=== PATIENT | male | born 1955 | race Caucasian/White ===

== ENCOUNTER 2017-03-28 09:24 | Observation (INO) | payer OTHER ==
--- NOTE | 2017-03-28 10:14 | EDPHY ---
H & P Time Seen by Provider: 03/28/17 10:09 HPI/ROS: Chief complaint. Chest pain HPI. 7-year-old male presents with several day history of sharp posterior left shoulder pain, left anterior chest discomfort and left posterior back pain below his scapula yesterday. The pains are described as sharp and worse with breathing. Symptoms are episodic. They are not worse with exertion. He is not short of breath. He has had recent travel. He has had some night sweats. Possibly fever to 100 degrees. Again the left anterior chest discomfort and back pain or worse with deep breathing. Not worse with exertion. He denies abdominal pain or vomiting or diarrhea. He denies urinary symptoms. Patient is visiting from [place]. ROS Constitutional. Possible low-grade fever. Night sweats Eyes. no problems with vision ENT. no sore throat, no nasal drainage Cardiovascular. Left anterior chest pain Respiratory. no shortness of breath, no cough Abdominal. no abdominal pain, no nausea/vomiting, no diarrhea . no problems urinating MS. Posterior left shoulder pain and pain below the left scapula. Skin. no rash Lymph. no swollen glands Neuro. no headache, no dizziness, no difficulty walking or with speech Past Medical/Surgical History: Denies family history of early coronary artery disease. Hernia surgery with mesh implanted and then mesh removed. Denies heart, lung, kidney, diabetes, hypertension Social History: , nonsmoker, no alcohol Smoking Status: Never smoked Physical Exam: General Appearance: Alert well-developed male mild distress vital signs are stable Eyes: Pupils equal and round no pallor or injection. ENT, Mouth: Mucous membranes are moist. Respiratory: There are no retractions, lungs are clear to auscultation. Cardiovascular: Regular rate and rhythm. Gastrointestinal: Abdomen is soft and nontender, no masses, bowel sounds normal. Neurological: Awake and alert, sensory and motor exams grossly normal. Skin: Warm and dry, no rashes. Musculoskeletal: Neck is supple nontender. Extremities symmetrical, full range of motion. Psychiatric: Patient is oriented X 3, there is no agitation. Constitutional: Initial Vital Signs Temperature (C) 36.9 C 03/28/17 09:26 Heart Rate 81 03/28/17 09:26 Respiratory Rate 18 03/28/17 09:26 Blood Pressure 127/90 H 03/28/17 09:26 O2 Sat (%) 96 03/28/17 09:26 O2 Delivery Mode Room Air Allergies/Adverse Reactions: No Known Allergies Allergy (Unverified 03/28/17 09:26) Home Medications: Medication Instructions Recorded NK [No Known Home Meds] 03/28/17 Medical Decision Making - Diagnostics EKG Interpretation: IV normal saline Imaging Results: Imaging Impressions Chest/Thorax CTA 03/28/17 11:49 Impression: 1. Moderate volume pulmonary emboli with a left lower lobe pulmonary infarct. 2. 7.5 mm noncalcified left lower lobe pulmonary nodule. If there are any old outside chest imaging studies, we would be happy to review them to assess for interval change. If none are available, recommend follow-up noncontrast chest CT in 6-12 months and then 18-24 months. I'm assuming that the patient does not have a history of malignancy. Results discussed with Dr. Guy Spence at 12:30 PM. General information for patients regarding this examination can be found at [email or web address]. If you have questions or comments about this report, please contact me at [phone] (hospital) or [phone] (cell). Denies chest x-ray CT scan with IV contrast shows moderate volume pulmonary embolus on the left with left lower lobe pulmonary infarct. Reviewed by me and discussed Dr. Salgado. Also incidental finding of a left lower lobe pulmonary nodule Procedures: IV normal saline, monitor. 1 L of saline. Patient has an elevated D-dimer and risk factors of travel. CT angio chest is ordered Patient refuses Lovenox. Eliquis is ordered for the patient ED Course/Re-evaluation: Re-evaluation at 11:40 a.m.. Patient is stable. He and I discussed lab and imaging and EKG findings. We discussed treatment plan including recommendation for CT angiogram due to elevated D-dimer. He expresses understanding and agreement Re-evaluation patient is stable. He and I discussed imaging study results, treatment plan including recommendation for admission. He expresses understanding and agreement I consulted discussed the case with Dr. Dorsey, hospitalist, who will see the patient in the emergency department. The patient goes back and forth whether he wishes to be admitted or not. He does not think he wants take Lovenox and asks for 1 of the novel anticoagulants. He is given a dose of Eliquis. Differential Diagnosis: I considered musculoskeletal, acute coronary syndrome, pulmonary embolus - Data Points Laboratory Results: Laboratory Results 03/28/17 10:35 03/28/17 10:35 03/28/17 03/28/17 03/28/17 10:45 10:35 10:35 WBC RBC Hgb Hct MCV MCH MCHC RDW Plt Count MPV Neut % (Auto) Lymph % (Auto) Coffee % (Auto) Eos % (Auto) Baso % (Auto) Nucleat RBC Rel Count Absolute Neuts (auto) Absolute Lymphs (auto) Absolute Monos (auto) Absolute Eos (auto) Absolute Basos (auto) Absolute Nucleated RBC Immature Gran % Immature Gran # D-Dimer Sodium 140 mEq/L mEq/L (135-145) Potassium 4.2 mEq/L mEq/L (3.5-5.2) Chloride 99 mEq/L mEq/L (97-110) Carbon Dioxide 31 mEq/l mEq/l (22-31) Anion Gap 10 mEq/L mEq/L (8-16) BUN 12 mg/dL mg/dL (7-23) Creatinine 0.8 mg/dL mg/dL (0.7-1.3) Estimated GFR > 60 Glucose 103 mg/dL H mg/dL (70-100) Calcium 8.7 mg/dL mg/dL (8.5-10.4) Troponin I < 0.012 ng/mL ng/mL (0.000-0.034) NT-Pro-B Natriuret Pep 56 pg/mL pg/mL (0-125) Urine Color MARIA T Urine Appearance CLEAR Urine pH 7.0 (5.0-7.5) Ur Specific [place] 1.017 (1.002-1.030) Urine Protein NEGATIVE (NEGATIVE) Urine Ketones TRACE H (NEGATIVE) Urine Blood NEGATIVE (NEGATIVE) Urine Nitrate NEGATIVE (NEGATIVE) Urine Bilirubin NEGATIVE (NEGATIVE) Urine Urobilinogen 4.0 EU H EU (0.2-1.0) Ur Leukocyte Esterase NEGATIVE (NEGATIVE) Urine RBC 1-3 /hpf /hpf (0-3) Urine WBC 1-3 /hpf /hpf (0-3) Ur Epithelial Cells NONE SEEN /lpf /lpf (NONE-1+) Hyaline Casts 1-5 /lpf /lpf (0-1) Urine Mucus TRACE /lpf /lpf (NONE-1+) Urine Glucose NEGATIVE (NEGATIVE) 03/28/17 03/28/17 10:35 10:35 WBC 5.94 10^3/uL 10^3/uL (3.80-9.50) RBC 4.89 10^6/uL 10^6/uL (4.40-6.38) Hgb 15.2 g/dL g/dL (13.7-17.5) Hct 44.1 % % (40.0-51.0) MCV 90.2 fL fL (81.5-99.8) MCH 31.1 pg pg (27.9-34.1) MCHC 34.5 g/dL g/dL (32.4-36.7) RDW 12.8 % % (11.5-15.2) Plt Count 157 10^3/uL 10^3/uL (150-400) MPV 9.5 fL fL (8.7-11.7) Neut % (Auto) 51.2 % % (39.3-74.2) Lymph % (Auto) 32.5 % % (15.0-45.0) Coffee % (Auto) 15.5 % H % (4.5-13.0) Eos % (Auto) 0.3 % L % (0.6-7.6) Baso % (Auto) 0.3 % % (0.3-1.7) Nucleat RBC Rel Count 0.0 % % (0.0-0.2) Absolute Neuts (auto) 3.04 10^3/uL 10^3/uL (1.70-6.50) Absolute Lymphs (auto) 1.93 10^3/uL 10^3/uL (1.00-3.00) Absolute Monos (auto) 0.92 10^3/uL H 10^3/uL (0.30-0.80) Absolute Eos (auto) 0.02 10^3/uL L 10^3/uL (0.03-0.40) Absolute Basos (auto) 0.02 10^3/uL 10^3/uL (0.02-0.10) Absolute Nucleated RBC 0.00 10^3/uL 10^3/uL (0-0.01) Immature Gran % 0.2 % % (0.0-1.1) Immature Gran # 0.01 10^3/uL 10^3/uL (0.00-0.10) D-Dimer 3.34 ug/mLFEU H ug/mLFEU (0.00-0.50) Sodium Potassium Chloride Carbon Dioxide Anion Gap BUN Creatinine Estimated GFR Glucose Calcium Troponin I NT-Pro-B Natriuret Pep Urine Color Urine Appearance Urine pH Ur Specific [place] Urine Protein Urine Ketones Urine Blood Urine Nitrate Urine Bilirubin Urine Urobilinogen Ur Leukocyte Esterase Urine RBC Urine WBC Ur Epithelial Cells Hyaline Casts Urine Mucus Urine Glucose Medications Given: Rivaroxaban (Xarelto) 15 mg PO BIDMEAL ELLIS Stop: 09/24/17 13:59 Last Admin: 03/28/17 14:36 Dose: 15 mg Discontinued Medications Enoxaparin Sodium (Lovenox) 70 mg SC EDNOW ONE Stop: 03/28/17 12:41 Last Admin: 03/28/17 13:43 Dose: Not Given Sodium Chloride (Ns) 1,000 mls @ 0 mls/hr IV ONCE ONE; Wide Open PRN Reason: Protocol Stop: 03/28/17 11:50 Last Admin: 03/28/17 12:22 Dose: 1,000 mls Departure - Departure Disposition: [facility] Inpatient Acute Clinical Impression: Pulmonary embolus and infarction Condition: Fair
--- NOTE | 2017-03-28 10:41 | CPEKG ---
Heart Rate: 68 RR Interval: 882 P-R Interval: 160 QRSD Interval: 96 QT Interval: 400 QTC Interval: 426 P [place]: 44 QRS [place]: 50 T Wave [place]: 37 EKG Severity - NORMAL ECG - EKG Impression: SINUS RHYTHM Electronically Signed By: Guy Spence 28-Mar-2017 15:52:02
[2017-03-28 10:47] LABS: PLATELET COUNT 157 10^3/uL (150-400)
[2017-03-28] MEDS ORDERED: NS 1,000 ML IV ONE (11:49)
[2017-03-28] MEDS ORDERED: IOPAMIDOL (ISOVUE 370) 100 ML BTL IV ONE (11:55)
[2017-03-28] MEDS ORDERED: ACETAMINOPHEN 325 MG TAB PO PRN (12:45)
[2017-03-28] MEDS ORDERED: ONDANSETRON DISINTEGRATING 4 MG TAB PO PRN (12:45)
[2017-03-28] MEDS ORDERED: ONDANSETRON 4 MG/2 ML VIAL IVP PRN (12:45)
[2017-03-28] MEDS: ENOXAPARIN 80 MG/0.8 ML SYR SC ONE ×2 (13:37→13:43)
--- NOTE | 2017-03-28 13:52 | GHP ---
[f rep st] HISTORY AND PHYSICAL DATE OF ADMISSION: 03/28/2017 CHIEF COMPLAINT: Left shoulder pain, acute pulmonary embolism. HPI: 61-year-old male with no significant past medical history, presenting with left shoulder and back pain. He was visiting his sister here in [place] from [place] and arrived yesterday. He first noticed the pain on the plane here and took a couple aspirin with relief. When he does have the pain, it is intermittent and is sharp, worse with a deep breath. He felt like he had a bruised rib. At 2:30 this morning, the pain was now in the front of his chest which was concerning for him. Denies cough. Not sure if he had a fever. No sore throat or nasal congestion. D-dimer is elevated at 3 and CTA shows moderate volume pulmonary embolism. The patient travels extensively for work. He was recently on a 24-hour trip from [place] to [place] and [facility]. Prior to that he was in [place]. REVIEW OF SYSTEMS: I completed a 10-point review of systems, negative except as noted in HPI. PAST MEDICAL HISTORY: None. PAST SURGICAL HISTORY: 1. Right inguinal groin hernia surgery with mesh, January 2016. 2. Mesh removal July 2016. 3. Meniscus repair. 4. Right leg skin cancer removed. 5. Left eyelid surgery. SOCIAL HISTORY: Lives in [place]. He is a media manager, travels quite a bit. No alcohol, tobacco or illicits. FAMILY HISTORY: No CVA or NV or blood clots. MEDICATIONS: Aspirin, as needed. ALLERGIES: No known drug allergies. PHYSICAL EXAMINATION: VITAL SIGNS: Temperature 36.8, blood pressure 116/92, heart rate in the 70s, respiratory rate 16, 96% on room air, dropped to 84% on exam. GENERAL: Well-appearance, lying in bed, no acute distress. HEENT: PERRLA. EOMI. Oropharynx clear. CV: Regular rhythm. No murmurs, gallops, rubs. LUNGS: Clear. No crackles or wheezing. ABDOMEN: Soft, nontender, nondistended. Positive bowel sounds. : No Nix. MUSCULOSKELETAL: Tenderness over left ribcage and underneath scapula. NEUROLOGIC: 2 through 12 intact. PSYCH: Alert and oriented x3. Anxious. LABS: WBC is 5.9, hemoglobin 15, hematocrit 44, platelets 157. Sodium 140, potassium 4.2, chloride 99, carbon dioxide 31, BUN 12, creatinine 0.8, glucose 60, calcium 8.7. Troponin less than 0.012. BNP is 56. D-dimer 3.34. UA is negative. EKG, personally reviewed by me, normal sinus rhythm. T-wave inversion in III, ST flattening in V2. No old to compare. CTA, moderate volume pulmonary embolism with a left lower lobe pulmonary infarct. A 7.5 mm noncalcified left lower lobe pulmonary nodule. Recommend followup in 6-12 months. ASSESSMENT/PLAN: 1. Acute pulmonary embolism: This is likely secondary to extensive traveling. His PESI score is 70, which is low risk for mortality. He is stable on room air. EKG is reassuring. Negative troponin and BNP. I have explained at length to he and his sister, different options including Coumadin versus novel agents. He has opted for Xarelto. 2. Incidental left lower lobe nodule: 7.5 mm. He will need a repeat CT scan 6- 12 months. 3. Brief acute hypoxia: dropped to 84% on RA during exam, but quickly normalized 3. Diet. Regular. 4. Deep vein thrombosis prophylaxis. Lovenox. 5. Disposition. Patient warrants observation admission given acute pulmonary embolus, warranting telemetry, pain control. Can DC in morning /[id number]/MODL MTDJohnny
[2017-03-28] MEDS: RIVAROXABAN 15 MG TAB PO SCH ×2 (14:36→18:05)
[2017-03-29 05:31] VITALS: RESP 16
[2017-03-29 07:27] VITALS: BP 126/70; PULSE 65; TEMP 98.2; O2SAT 92
[2017-03-29] MEDS: RIVAROXABAN 15 MG TAB PO SCH (09:12)
--- NOTE | 2017-03-29 09:24 | ASMTCMCOM ---
CM Note CM Note Notes: 03/29/2017 Case Management Note Reviewed chart. There are no case management d/c needs identified d/t pt age, marital status and activity levels prior to admission. There are no PT or OT evals ordered at this time. Case Management d/c poc: anticipating independent with follow up as directed. Case Management available if needs change. Date Signed: 03/29/2017 09:23 AM Electronically Signed By:Jessica Rdz RN
--- NOTE | 2017-03-29 20:25 | GDS ---
[f rep st] DISCHARGE SUMMARY DISCHARGE DIAGNOSES: 1. Acute pulmonary embolus. 2. Incidental left lower lobe nodule. HISTORY: The patient is a 61-year-old male who travels frequently for work, currently visiting his s ister in [place], but he lives in [place]. After extensive recent plane flights, he noticed back pa in that was sharp, moved to his shoulder and then to his chest. It became severe and he presented to the emergency room. CT angiogram showed moderate volume pulmonary embolus with pulmonary infarct. He was hemodynamically, however, very stable. His extensive traveling and prolonged plane flights, t his is likely a risk factor. He does have a previous history, however, of a superficial DVT and has previously undergone hypercoagulable testing, and is known to be a Factor V Leiden heterozygote. Thi s is now his 2nd clot, which does suggest he has a tendency towards a hypercoagulable state. He was discharged on Xarelto and he can consult with his primary care provider regarding long-term managemen t of a possible hypercoagulable state. He was counseled regarding the need for repeat CT scan regard ing left lower lobe pulmonary nodule, incidentally noted, in 6-12 months. DISCHARGE MEDICATIONS: Please see computer record for full detailed list. New medication: Xarelto 50 mg p.o. b.i.d. for 21 days, and then reduce dose to 20 mg p.o. once a day . Recommend at least 3-6 months of anticoagulation, may be longer, depending on discussion with primary care regarding risks and benefits. DISCHARGE INSTRUCTIONS: Repeat CT scan of chest in 6-12 months to follow up pulmonary nodule. Greater than 30 minutes' time was spent arranging this discharge. Patient seen and examined by me on day of discharge. /[id number]/MODL
== END 2017-03-29 12:41 | disposition home or self-care (01) ==
LOC: INTOOBSV 12:41 → UNDOADMIN 12:41 → F2W 14:20
PROVIDERS: ADMIT Internal Medicine; ATTEND Internal Medicine
DX: I26.99 Other pulmonary embolism without acute cor pulmonale (principal); R91.1 Solitary pulmonary nodule
CPT/HCPCS: 71275; 93005; 99285; G0378; J1650; Q9967